=== PATIENT | female | born 1995 ===

== ENCOUNTER 2022-07-06 15:04 | Outpatient (CLI) | payer OTHER | END 2022-07-06 16:25 | disposition home or self-care (01) | LOC: PRENATAL 15:04 | PROVIDERS: ATTEND Obstetrics & Gynecology Maternal & Fetal Medicine | DX: O36.80X0 Pregnancy with inconclusive fetal viability, not applicable or unspecified (principal); Z3A.14 14 weeks gestation of pregnancy ==

== ENCOUNTER 2022-08-18 12:01 | Outpatient (CLI) | payer OTHER | END 2022-08-18 13:41 | disposition home or self-care (01) | LOC: PRENATAL 12:01 | PROVIDERS: ATTEND Obstetrics & Gynecology Maternal & Fetal Medicine | DX: O35.9XX0 Maternal care for (suspected) fetal abnormality and damage, unspecified, not applicable or unspecified (principal); O35.3XX0 Maternal care for (suspected) damage to fetus from viral disease in mother, not applicable or unspecified; Z3A.20 20 weeks gestation of pregnancy ==

== ENCOUNTER 2022-11-12 13:59 | Outpatient (CLI) | payer OTHER | END 2022-11-12 14:42 | disposition home or self-care (01) | LOC: PRENATAL 13:59 | PROVIDERS: ATTEND Obstetrics & Gynecology Maternal & Fetal Medicine | DX: O26.849 Uterine size-date discrepancy, unspecified trimester (principal); O36.8199 Decreased fetal movements, unspecified trimester, other fetus; Z3A.32 32 weeks gestation of pregnancy ==

== ENCOUNTER 2022-12-22 13:15 | Inpatient (IN) | payer OTHER ==
[~2022-12-22] VITALS: Ht 157.5 cm; Wt 3.2 kg
[2023-01-05] MEDS ORDERED: PRENATAL TABLE1 EAC1 PO (06:49)
[2023-01-05 07:11] LABS: HEMATOCRIT 42.5 % (36.0-45.00); HEMOGLOBIN 14.6 g/dL (12.0-15.00); MEAN CELL VOLUME 95.4 fL (80.00-100.00); MEAN CORPUSCULAR HEMOGLOBIN 32.7 pg (27.00-32.0); MEAN CORPUSCULAR HGB CONC 34.3 g/dl (32.0-36.0); RED BLOOD COUNT 4.46 M/uL (4.00-6.00); RED CELL DISTRIBUTION WIDTH 14.1 % (11.5-14.5)
[2023-01-05 07:17] LABS: URINE APPEARANCE Clear; URINE BILIRRUBIN Negative (NEGATIVE); URINE BLOOD Negative; URINE COLOR Yellow; URINE GLUCOSE Negative (NEGATIVE); URINE LEUKOCYTE Negative; URINE NITRATE Negative; URINE PROTEIN Trace (NEGATIVE)
[2023-01-05 07:20] LABS: URINE BACTERIA 2789.3 uL (0.0-1933); URINE EPITHELIAL CELLS 24.5 uL (0.0-38.8); URINE RBC 6.4 uL (0.0-20.8)
[2023-01-05 07:30] LABS: INR < 0.93; PARTIAL THROMBOPLASTIN TIME 27.5 SECONDS (22.0-34.0); PROTHROMBIN TIME 9.3 SECONDS (9.0-11.5)
[2023-01-05 07:33] LABS: PLATELET COUNT 127 K/uL (150-450)
[2023-01-05 22:08] LABS: ABG PH 7.339 (7.35-7.45); ABG pCO2 41.7 mmHg (35-45); BASE EXCESS -3.7 mmol/l; BICARBONATE 21.9 mmol/l (23-25); SaO2 57.1 %; Tco2 23.2 mmol/l
[2023-01-05 22:10] LABS: ABG PO2 32.5 mmHg (80-100); o2 21 %
[2023-01-06 06:03] LABS: HEMATOCRIT 36.5 % (36.0-45.00); HEMOGLOBIN 12.2 g/dL (12.0-15.00); MEAN CELL VOLUME 96.7 fL (80.00-100.00); MEAN CORPUSCULAR HEMOGLOBIN 32.3 pg (27.00-32.0); MEAN CORPUSCULAR HGB CONC 33.5 g/dl (32.0-36.0); RED BLOOD COUNT 3.77 M/uL (4.00-6.00); RED CELL DISTRIBUTION WIDTH 13.7 % (11.5-14.5)
[2023-01-06 06:06] LABS: PLATELET COUNT 103 K/uL (150-450)
== END 2023-01-07 11:31 | disposition home or self-care (01) | DRG 788 ==
LOC: OB/GYN 01-03 13:15 → LDR 01-05 06:15 → OB/GYN 01-05 20:53
PROVIDERS: ADMIT Obstetrics & Gynecology; ATTEND Obstetrics & Gynecology
PROC: 3E033VJ Introduction of Other Hormone into Peripheral Vein, Percutaneous Approach (ICD-10-PCS; 2023-01-05)
PROC: 3E0P7VZ Introduction of Hormone into Female Reproductive, Via Natural or Artificial Opening (ICD-10-PCS; 2023-01-05)
PROC: 4A1HXCZ Monitoring of Products of Conception, Cardiac Rate, External Approach (ICD-10-PCS; 2023-01-05)
PROC: 10D00Z1 Extraction of Products of Conception, Low, Open Approach (ICD-10-PCS; principal; 2023-01-05 18:30)
DX: O62.2 Other uterine inertia (principal); Z3A.40 40 weeks gestation of pregnancy; Z37.0 Single live birth; Z20.822 Contact with and (suspected) exposure to COVID-19